=== PATIENT | female | born 1965 | race Caucasian/White ===

== ENCOUNTER 2019-08-02 16:55 | Emergency (ER) | payer SELFPAY ==
[~2019-08-02] VITALS: Ht 162.6 cm; Wt 45.4 kg
[2019-08-02 17:12] VITALS: BP 115/65
--- NOTE | 2019-08-02 17:25 | NUR ---
C/O COUGH/FEVER X3 DAYS. PT IS AFEBRILE. RESP EVEN AND UNLABORED. VSS. SPO2 100% RA. LUNG SOUNDS CLEAR IN BILAT LOBES. DENIES N/V/D. AAOX4. ABLE TO AMBULATE TO TENT. PT DENIES CP/SOB. NO PMH NKA
--- NOTE | 2019-08-02 17:25 | NUR ---
COVID SWAB PERFORMED IN TENT. WALKED TO LAB
[2019-08-02 17:28] VITALS: BP 115/65
--- NOTE | 2019-08-02 17:28 | NUR ---
Patient discharged with v/s stable. Written and verbal after care instructions given and explained. Patient alert, oriented and verbalized understanding of instructions. Ambulatory with steady gait. All questions addressed prior to discharge. ID band removed. Patient advised to follow up with PMD. Rx of IBUPROFEN, ACETAMINOPHEN, ROBITUSSIN given. Patient educated on indication of medication including possible reaction and side effects. Opportunity to ask questions provided and answered.
== END 2019-08-02 17:28 | disposition home or self-care (01) ==
LOC: EEVIPCON 16:55 → MED 16:55
DX: R50.9 Fever, unspecified (principal); R05 Cough; J02.9 Acute pharyngitis, unspecified; Z20.828 Contact with and (suspected) exposure to other viral communicable diseases
CPT/HCPCS: 99283; C9803; U0003; 36415